=== PATIENT | male | born 1995 | race African-American/Black ===

== ENCOUNTER 2018-12-05 14:59 | Emergency (ER) | payer SELFPAY ==
[~2018-12-05] VITALS: Ht 170.2 cm; Wt 66.0 kg
[2018-12-05 15:15] VITALS: Ht 170.2 cm; Wt 66.0 kg
--- NOTE | 2018-12-05 17:40 | ERD ---
ER Documentation Chief Complaint Chief Complaint chest wall pain on/off x2 wks, small lump left chest area yesterday HPI 23-year-old male complains of chest pain off for the past 2 weeks. In addition he states he has a little lump on his chest that he is concerned about. He just noticed it yesterday. He also states that he has a history of anxiety. Denies denies SOB, dyspnea, lower extremity swelling or pain, pain on exertion, diaphoresis, nausea, radiating of pain, recent travel or immobilization, hemoptysis, dsypnea, history of clotting disorder, syncope, fever, or cough. Denies medical history. Denies allergies. ROS All systems reviewed and are negative except as per history of present illness. Allergies Allergies: Coded Allergies: No Known Allergy (Unverified , 12/05/18) PMhx/Soc Medical and Surgical Hx: pt denies Surgical Hx Hx Miscellaneous Medical Probl: Yes (anxiety ) Hx Alcohol Use: No Hx Substance Use: No Hx Tobacco Use: No Smoking Status: Never smoker FmHx Family History: No diabetes, No coronary disease, No other Physical Exam Vitals Vital Signs Date Temp Pulse Resp B/P (MAP) Pulse Ox O2 O2 Flow FiO2 Time Delivery Rate 12/05/18 98.7 72 18 124/78 100 15:15 (93) Physical Exam Const: No acute distress Head: Atraumatic Eyes: Normal Conjunctiva ENT: Normal External Ears, Nose and Mouth. Neck: Full range of motion. No meningismus. Resp: Clear to auscultation bilaterally Cardio: Regular rate and rhythm, no murmurs Abd: Soft, non tender, non distended. Normal bowel sounds Skin: No petechiae or rashes Back: No midline or flank tenderness Ext: No cyanosis, or edema Neur: Awake and alert Psych: Normal Mood and Affect Results 24 hrs Laboratory Tests Test 12/05/18 16:59 Troponin I 0.017 ng/ml Procedures/MDM DIAGNOSTIC IMAGING REPORT Patient: LAUREL ZIMMERMAN : 1995 Age: 23 Sex: M MR #: [id number] DOS: 12/05/18 1653 Ordering MD: LILLIAM GALLEGOS Location: [facility] Room/Bed: PROCEDURE: XR Chest. CLINICAL INDICATION: Chest pain. TECHNIQUE: Single frontal chest x-ray. COMPARISON: None available. FINDINGS: The cardiomediastinal silhouette is unremarkable. No pneumothorax, pleural effusion or consolidation is seen. No acute osseous abnormality is noted. IMPRESSION: 1. No acute cardiopulmonary abnormality. RPTAT: HH .Tomas Garcia MD, MD Date Time Electronically viewed and signed by .Tomas Garcia MD, MD on 12/05/2018 17:48 .N/ CC: LILLIAM GALLEGOS [id number] EKG: Rate/Rhythm: Normal Sinus Rhythm QRS, ST, T-waves: No changes consistent w/ acute ischemia Impression: No evidence of ischemia or arrhythmia Troponin, EKG, chest x-ray were all within normal limits. Patient was advised that labs and imaging look normal therefore there is a very low chance that he is having an [place] at this time. However, if chest pain continues he needs to follow-up with his primary possibly see a dairy specialist. Patient states that he does not have a doctor here yet. I told patient I put out a list of clinics that he would be able to go to. I have low suspicition for acute coronary syndrome, pulmonary embolism, aortic dissection, AAA, pneumothorax, esophageal rupture, pericarditis, myocarditis, or pneumonia based on EKG, imaging, labs, patient history and exam. Patient discharged with strict ER precautions. Patient advised to follow up with PMD. All questions answered at discharge. Departure Diagnosis: Primary Impression: Chest wall pain Condition: Stable LILLIAM GALLEGOS Dec 05, 2018 17:40
[2018-12-05 18:12] VITALS: BP 122/79; PULSE 79; RESP 18
== END 2018-12-05 18:12 | disposition home or self-care (01) ==
LOC: FTE 14:59
DX: R07.89 Other chest pain (principal)
CPT/HCPCS: 71045; 84484; 93005